=== PATIENT | female | born 1955 | race Caucasian/White ===

== ENCOUNTER 2022-06-12 10:43 | Emergency (ER) | payer MEDICARE, SELFPAY ==
[2022-06-12 10:51] VITALS: BP 155/74; PULSE 67; RESP 16; TEMP 36.5; O2SAT 98
--- NOTE | 2022-06-12 10:53 | ED.EAR ---
HPI - Ear Problem General Chief complaint: Ear Stated complaint: ear pain Source: patient and RN notes reviewed History of Present Illness HPI Narrative: 66 yo F presents to urgent care with complaints of left ear discomfort. Pt denies any ear pain but reports the feeling of fluid swishing in her ear x 3 days. Pt states she has been congested and fighting upper respiratory symptoms for almost 2 weeks. Pt states she tested + for Covid 1 week ago. Denies any fevers, chills, N/V/D, chest pain, or SOB. Pt has been using Flonase BID and taking Sudafed without relief. Pt states she is scheduled to fly on Friday and go on a 1 week cruise and wanted to make sure she was ok today. Related Data Home Medications Medication Instructions Recorded Confirmed omeprazole 40 mg capsule,delayed 40 mg PO DAILY 06/12/22 06/12/22 release Allergies Allergy/AdvReac Type Severity Reaction Status Date / Time No Known Allergies Allergy Unverified 06/12/22 10:57 Review of Systems Review of Systems: Pertinent positives and pertinent negatives per HPI. PMFSH Comments At the time of my signature, I reviewed and agree with the nursing past medical, surgical, social, and family history. There is no relevant family history pertinent to the patient complaint. Exam Narrative: GENERAL: This is a well-nourished, well-developed patient, in no apparent distress. HEAD: normocephalic, atraumatic. EYES: Sclera clear/white. Vision is grossly intact. EARS: External ears normal, auditory canals clear and without drainage, TMs normal without perforation. Hearing grossly intact. Effusion noted behind left TM, clear. NOSE: External nose normal with no obvious nasal discharge, nares without redness, no rhinorrhea. THROAT: Mucous membranes moist, posterior pharynx clear. NECK: Neck supple, non-tender without lymphadenopathy, masses or thyromegaly. CARDIOVASCULAR: Regular rate RESPIRATORY: No respiratory distress SKIN: warm, intact with no suspicious lesions or rash, good texture and turgor. NEURO: awake, alert, and oriented to person, place and time. There were no obvious focal neurologic abnormalities. Course Course Level of Care: Express Care Visit Vital Signs Vital signs: Vital Signs Temperature 97.7 F 06/12/22 10:51 Pulse Rate 67 06/12/22 10:51 Respiratory Rate 16 06/12/22 10:51 Blood Pressure 155/74 H 06/12/22 10:51 Pulse Oximetry 98 06/12/22 10:51 Oxygen Delivery Room Air 06/12/22 10:51 Temperature 97.7 F 06/12/22 10:51 Pulse Rate 67 06/12/22 10:51 Respiratory Rate 16 06/12/22 10:51 Blood Pressure 155/74 H 06/12/22 10:51 Pulse Oximetry 98 06/12/22 10:51 Oxygen Delivery Room Air 06/12/22 10:51 Reviewed Medical Decision Making MDM Narrative Medical decision making narrative: Return to urgent care or go to the ER for new or worsening symptoms. Avoid smoking/second-hand smoke. Continue to take Tylenol or Motrin for pain. Increase your Vitamin C intake. Use a humidifier or vaporizer at night. Take Medications as prescribed. Drink plenty of water. 8-10 glasses per day. Use flonase 2 times per day for 5 days then as needed Take mucinex 2 times per day and be sure to take with 8oz of water. Follow up with Primary provider if not getting better. Go to the ER for new or worsening symptoms. Differential Diagnosis Differential Diagnosis: sinusitis, AOM, Viral illness Vital Signs Vital Signs: Vital Signs Temperature 97.7 F 06/12/22 10:51 Pulse Rate 67 06/12/22 10:51 Respiratory Rate 16 06/12/22 10:51 Blood Pressure 155/74 H 06/12/22 10:51 Pulse Oximetry 98 06/12/22 10:51 Oxygen Delivery Room Air 06/12/22 10:51 Temperature 97.7 F 06/12/22 10:51 Pulse Rate 67 06/12/22 10:51 Respiratory Rate 16 06/12/22 10:51 Blood Pressure 155/74 H 06/12/22 10:51 Pulse Oximetry 98 06/12/22 10:51 Oxygen Delivery Room Air 06/12/22 10:51 Critical Care Time
== END 2022-06-12 11:08 | disposition home or self-care (01) ==
PROVIDERS: Emergency Provider Nurse Practitioner Family; PCP Family Medicine
DX: J32.9 Chronic sinusitis, unspecified (principal)
CPT/HCPCS: 99203; G0463